=== PATIENT | female | born 1995 | race Hispanic/Latino ===

== ENCOUNTER 2019-04-16 22:37 | Emergency (ER) | payer OTHER ==
--- OUTSIDE RECORDS SUMMARY | 2019-04-16 22:40 | XMS REPORT | Continuity of Care Document ---
:1995 Author Organization [facility] Address [address] [place] [address] Phone Unavailable Care Team Providers Name Role Phone PHYSICIAN, NO Primary Care Physician Unavailable Insurance Providers Guarantor IsaelGabby M Address [address] [place] [address] Email NO EMAIL Payer Self Pay Insurance Subscriber's Name Gabby Kirkland Relationship Self / Same As Patient Group Number NA Group Name NA Advance Directives Directive Response Recorded Date/Time Advance Directives No 09/25/15 10:51am Advance Directive on File No 12/10/17 4:47pm Directive to Physicians/Living Will No 09/25/15 10:51am Health Care Proxy No 09/25/15 10:51am Name of Surrogate/Decision Maker NA 12/10/17 4:59pm Organ Donor Yes 09/25/15 10:51am Medical Power of Pastry Mixer No 09/25/15 10:51am Patient/Family Given Education Material R/T Y - KR....12/10/17 12/10/17 4: 59pm Directives? Chief Complaint and Reason for Visit Chief Complaint Abdominal/GI/Nausea/Vomiting Reason for Visit Nonspecific abdominal pain Problems Medical Problem Onset Date Status Abdominal pain Unknown Acute Abscess of skin of neck Unknown Acute Dehydration Unknown Acute Flank pain Unknown Acute Heat exhaustion Unknown Acute Hyperemesis gravidarum with dehydration Unknown Acute Hypokalemia Unknown Acute delivery Unknown Acute UTI (lower urinary tract infection) Unknown Acute UTI (lower urinary tract infection) Unknown Acute Past Problems Medical Problem Onset Date Status Marijuana abuse Unknown Acute Nonspecific abdominal pain Unknown Acute Tobacco use Unknown Acute Viral bronchitis Unknown Acute Medications Current Home MedicationsNo known current home medications. Past Home Medications Medication Directions Ordered Status Cefdinir (Omnicef) 300 Mg Cap, 300 Every 12 Hours Discontinued Mg Oral Hydrocodone-Acetaminophen 5/325MG Every 4-6H As Needed/ Pain as 03/06/16 Discontinued * (Walling 5/325MG *) 1 Tab Tab, 1-2 needed for Pain Tabs Oral Ibuprofen 800 Mg Tab, 800 Mg Oral Every 6 Hours As Needed for 03/06/16 Discontinued Pain Phenazopyridine Hcl (Pyridium 200 Three Times Daily As Needed Discontinued Mg*) 200 Mg Tab, 200 Mg Oral Vit W/ Fe Polysacch C Once Daily Discontinued (Vitafol Ultra) 1 Cap Cap, 1 Cap Oral Social History Social History Problem Response Recorded Date/Time Onset Date Status Hx Alcohol Use No 07/16/2011 10:50am Not Applicable Not Applicable Hx Physical Abuse No 12/10/2017 4:47pm Not Applicable Not Applicable Smoking Status Start Date Stop Date Current every day smoker Hospital Discharge Instructions No hospital discharge instruction information available. Plan of Care Discharge Date 12/10/17 7:00pm Instructions/Education Provided Abdominal Pain, Adult, Onss-ww-Eehe Forms Provided Portal Welcome Letter Prescriptions See Medication Section Referrals NO PHYSICIAN Additional Instructions/Education Home Tylenol or Advil for pain REturn to ER as needed RX Zofran Follow-up with primary MD Functional Status No functional status information available. Allergies, Adverse Reactions, Alerts Allergen Type Severity Reaction Status Last Updated No Known Allergies Allergy Unknown Active 10/12/13 Immunizations No immunization information available. Vital Signs Acute Vital Signs Vital Response Date/Time Blood Pressure 120/65 mm Hg 12/10/2017 7:05pm Pulse Pulse Rate (adult) 67 beats per minute (60 - 100) 12/10/2017 7:05pm Respiratory Rate 17 breaths per minute (10 - 24) 12/10/2017 7:05pm Temperature Source Oral 12/10/2017 6:14pm Height 5 ft 4 in 12/10/2017 4:47pm Weight 160 lb 12/10/2017 4:47pm Body Mass Index 27.5 kg/m^2 12/10/2017 4:47pm Results Laboratory Results Test Name Result Units Flags Reference Collection Result Comments Date/Time Date/Time White Blood Count 9.6 K/ul 4.0-11.5 12/10/2017 12/10/2017 5:32pm 5:42pm Red Blood Count 4.80 M/ul 3.80-5.20 12/10/2017 12/10/2017 5:32pm 5:42pm Hemoglobin 13.4 g/dl 10.5-15.7 12/10/2017 12/10/2017 5:32pm 5:42pm Hematocrit 39.4 % 34.0-50.0 12/10/2017 12/10/2017 5:32pm 5:42pm Mean Corpuscular 82.0 fl 78-98 12/10/2017 12/10/2017 Volume 5:32pm 5:42pm Mean Corpuscular 27.8 pg 26.2-33.4 12/10/2017 12/10/2017 Hemoglobin 5:32pm 5:42pm Mean Corpuscular 34.0 g/dl 31.5-36.2 12/10/2017 12/10/2017 Hemoglobin Concent 5:32pm 5:42pm Red Cell 13.4 % 11.5-15.5 12/10/2017 12/10/2017 Distribution Width 5:32pm 5:42pm Platelet Count 250 K/ul 137-338 12/10/2017 12/10/2017 5:32pm 5:42pm Mean Platelet 9.4 fl 8.4-11.8 12/10/2017 12/10/2017 Volume 5:32pm 5:42pm Neutrophils (%) 63.8 % 44.4-80.1 12/10/2017 12/10/2017 (Auto) 5:32pm 5:42pm Lymphocytes (%) 27.5 % 10.0-50.0 12/10/2017 12/10/2017 (Auto) 5:32pm 5:42pm Monocytes (%) 5.6 % 3.6-12.04 12/10/2017 12/10/2017 (Auto) 5:32pm 5:42pm Eosinophils (%) 2.3 % 0.0-5.41 12/10/2017 12/10/2017 (Auto) 5:32pm 5:42pm Basophils (%) 0.9 % H 0.0-0.79 12/10/2017 12/10/2017 (Auto) 5:32pm 5:42pm Urine Color YELLOW 12/10/2017 12/10/2017 5:25pm 5:56pm Urine Appearance CLEAR CLEAR 12/10/2017 12/10/2017 5:25pm 5:56pm Urine Glucose NEGATIVE NEGATIVE 12/10/2017 12/10/2017 5:25pm 5:56pm Urine Bilirubin NEGATIVE NEGATIVE 12/10/2017 12/10/2017 5:25pm 5:56pm Urine Ketones TRACE NEGATIVE 12/10/2017 12/10/2017 5:25pm 5:56pm Urine Specific 1.030 1.003-1.03 12/10/2017 12/10/2017 Sayre 0 5:25pm 5:56pm Urine Blood NEGATIVE NEGATIVE 12/10/2017 12/10/2017 5:25pm 5:56pm Urine pH 6.000 5-9 12/10/2017 12/10/2017 5:25pm 5:56pm Urine Protein 1+ (30 H NEGATIVE 12/10/2017 12/10/2017 mg/dL) 5:25pm 5:56pm Urine Urobilinogen 2.0-3.0 mg/dL H 0.2-1.0 12/10/2017 12/10/2017 5:25pm 5:56pm Urine Nitrate NEGATIVE NEGATIVE 12/10/2017 12/10/2017 5:25pm 5:56pm Urine Leukocyte NEGATIVE NEGATIVE 12/10/2017 12/10/2017 Esterase 5:25pm 5:56pm Urine RBC 1-5 /hpf 0-5 12/10/2017 12/10/2017 5:25pm 6:02pm Urine WBC 1-5 /hpf 0-5 12/10/2017 12/10/2017 5:25pm 6:02pm Urine Epithelial 1-5 /hpf 0-5 12/10/2017 12/10/2017 Cells 5:25pm 6:02pm Urine Bacteria SMALL(1+) /hpf None 12/10/2017 12/10/2017 Detect 5:25pm 6:02pm Urine Casts 6-10 /lpf H None 12/10/2017 12/10/2017 Detect 5:25pm 6:02pm Urine Culture NO 12/10/2017 12/10/2017 Reflexed 5:25pm 5:56pm Urine Mucus 2+ /lpf None 12/10/2017 12/10/2017 Detect 5:25pm 6:02pm Urine Pathogenic None seen /hpf None 12/10/2017 12/10/2017 Casts Detect 5:25pm 6:02pm Random Glucose 97 mg/dL 74-106 12/10/2017 12/10/2017 5:32pm 5:53pm Blood Urea 10 mg/dL 6-20 12/10/2017 12/10/2017 Nitrogen 5:32pm 5:53pm Serum Osmolality 278 L 280-300 12/10/2017 12/10/2017 5:32pm 5:53pm Creatinine 0.6 mg/dL 0.50-0.90 12/10/2017 12/10/2017 5:32pm 5:53pm Glomerular > 60.00 12/10/2017 12/10/2017 GFR RESULTS ARE REPORTED IN mL/min/1.73m2. Filtration Rate 5:32pm 5:53pm Calc Normal GFR: >60mL/min Moderately decreased GFR: 30-59 mL/min Severely decreased GFR: 15-29 mL/min Kidney Failure (or Dialysis): <15 mL/min The calculated eGFR is not valid for patients younger than 18 years or older than 75 years. BUN/Creatinine 16.7 12-12/10/2017 12/10/2017 Ratio 5:32pm 5:53pm Sodium Level 140 mmol/L 135-145 12/10/2017 12/10/2017 5:32pm 5:53pm Potassium Level 3.5 mmol/L 3.5-5.2 12/10/2017 12/10/2017 5:32pm 5:53pm Chloride Level 100 mmol/L 98-108 12/10/2017 12/10/2017 5:32pm 5:53pm Carbon Dioxide 25 mmol/L 21-32 12/10/2017 12/10/2017 Level 5:32pm 5:53pm Anion Gap 18.5 mEq/L 12-12/10/2017 12/10/2017 5:32pm 5:53pm Calcium Level 9.4 mg/dL 8.6-10.0 12/10/2017 12/10/2017 5:32pm 5:53pm Total Protein 7.6 g/dL 6.6-8.7 12/10/2017 12/10/2017 5:32pm 5:53pm Albumin 4.3 g/dL 3.5-5.2 12/10/2017 12/10/2017 5:32pm 5:53pm Globulin 3.3 gm/dL 12/10/2017 12/10/2017 5:32pm 5:53pm Albumin/Globulin 1.3 >1.0 12/10/2017 12/10/2017 Ratio 5:32pm 5:53pm Total Bilirubin 1.0 mg/dL 0.0-1.2 12/10/2017 12/10/2017 5:32pm 5:53pm Aspartate Amino 14 U/L L 15-32 12/10/2017 12/10/2017 Transf (AST/SGOT) 5:32pm 5:53pm Alanine 12 U/L 0-33 12/10/2017 12/10/2017 Aminotransferase 5:32pm 5:53pm (ALT/SGPT) Lipase 27 U/L 13-60 12/10/2017 12/10/2017 5:32pm 5:53pm Total Alkaline 97 U/L 35-105 12/10/2017 12/10/2017 Phosphatase 5:32pm 5:53pm Urine HCG, NEGATIVE NEG 12/10/2017 12/10/2017 Qualitative 5:25pm 5:52pm If a negative result is obtained but is suspected, a new specimen should be collected after 48-72 hours and tested. If waiting 48 hrs is not medically advisable, the test result should be confirmed with at quantitative hCG assay. Procedures Procedure Status Date Provider(s) Computed tomography of abdomen and pelvis with Completed 12/10/17 BERKLEY MEZA MD contrast Encounters Encounter Location Arrival/Admit Date Discharge/Depart Date Attending Provider Departed [place] 12/10/17 4:39pm 12/10/17 7:00pm BERKLEY MEZA Emergency Room [facility] MD [facility] Recent Diagnosis
--- OUTSIDE RECORDS SUMMARY | 2019-04-16 22:40 | XMS REPORT | Continuity of Care Document ---
:1995 Author Organization [facility] Address [address] [place] [address] Allergies, Adverse Reactions, Alerts Allergen Type Severity Reaction Last Updated Verified Status No Known Allergies Allergy Unknown October 12, 2013 No Active Medications Medication Status Dose Units Route Sig Qty Days Start End Instructions Date Date Tramadol/Apap Discontinu 1 ORAL Every 4 20 5 November * ed Hours , , As 2018 2018 Needed 11:00am for Pain Cefdinir Discontinu 300 ORAL Every September ed 12 11, Hours 2014 Hydrocodone-Ac Discontinu 1-2 ORAL Every February etaminophen ed 4-6H As , 5/325MG * Needed/ 2016 2017 Pain as 10:20am needed for Pain Ibuprofen Discontinu 800 ORAL Every 6 February ed Hours , , As 2016 2017 Needed 10:20am for Pain Phenazopyridin Discontinu 200 ORAL Three September e Hcl ed Times , Daily 2014 As Needed Vit Discontinu 1 ORAL Once 13 July W/ Fe ed Daily , Polysacch C 2017 Problems Active Problems Medical Problem Onset Date Status Abdominal pain Active Abscess of skin of neck Active Dehydration Active Flank pain Active Heat exhaustion Active Hyperemesis gravidarum with dehydration Active Hypokalemia Active delivery Active UTI (lower urinary tract infection) Active UTI (lower urinary tract infection) Active Inactive/Resolved Problems Medical Problem Onset Date Status Fracture of phalanx of toe of left foot Resolved Marijuana abuse Resolved Nonspecific abdominal pain Resolved Tobacco use Resolved Viral bronchitis Resolved Procedures Procedure Date Performed Status X-ray of left foot, three views December 04, 2018 completed Relevant Diagnostic Tests and/or Laboratory Data No known relevant diagnostic tests and/or laboratory data. Health Concerns No known health concerns documented Advance Directives Advance Directive Response Recorded Date/Time Advance Directives No September 25, 2015 10:51am Advance Directive on File No December 04, 2018 8:45am Directive to Physicians/Living Will No September 25, 2015 10:51am Health Care Proxy No September 25, 2015 10:51am Organ Donor Yes September 25, 2015 10:51am Medical Power of Tree Expert No September 25, 2015 10:51am Chief Complaint and Reason for Visit Chief Complaint Extremity Pain/Injury Reason for Visit [id number] Encounters Encounter Location(s) Arrival/Admit Date Discharge/Depart Date Provider(s) Departed [place] December 04, 2018 December 04, 2018 AVRIL ZUNIGA Emergency Room [facility] [place] 8:37am 11:20am MD Ctr Assessments No Assessments Information Available Functional Status No Functional Status information available Goals No Goals Information Available Immunizations No Immunization Information Available Mental Status No Mental Status Information Available Medical Equipment No Medical Equipment Information available Insurance Providers Guarantor Gabby Kirkland Address [address] [place] [address] [facility] [id number] Contact Info. Home Phone: Payer Policy Id Coverage Id Subscriber's Subscriber Id Effective Expiration Name Date Date Self Pay Haile Kirkland Plan of Treatment RENNY TAPE TOES. USE WALKING BOOT/SHOE UNTIL FOLLOW UP WITH ORTHOPEDIC. CRUTCH TRAINING HAS BEEN GIVEN BY NURSE. TAKE ALL MEDICATIONS PRESCRIBED NON WEIGHT BEARING TO LEFT FOOT UNTIL FOLLOW UP WITH ORTHOPEDIC IN 2-3 DAYS RETURN TO THE ER IF YOUR SYMPTOMS WORSEN Future Tests Future scheduled test information is unavailable Pending Tests Pending diagnostic test information is unavailable Future Visits Future appointment information is unavailable Referrals to Other Providers Reason for Referral Start Provider Provider Contact Provider Address Referral Date Information PHYSICIAN, NO Future Procedures Future procedure information is unavailable Future Medications Future medication information is unavailable Patient Instructions Toe Fracture, [id number] Social History Smoking Status Status Date of Observation Smokes tobacco daily (finding) December 04, 2018 8:45am Observation Status Observation Response Date of Response Hx Alcohol Use No July 16, 2011 10:50am Hx Physical Abuse No December 04, 2018 8:45am Assigned Sex Female Vital Signs Vital Reading Result Collection Date/Time
--- OUTSIDE RECORDS SUMMARY | 2019-04-16 22:40 | XMS REPORT | Continuity of Care Document ---
:1995 Author Organization [facility] Address [address] [place] [address] Allergies, Adverse Reactions, Alerts Allergen Type Severity Reaction Last Updated Verified Status No Known Allergies Allergy Unknown October 12, 2013 No Active Medications Medication Status Dose Units Route Sig Qty Days Start End Instructions Date Date Azithromycin Discontinu 1 ORAL As 1 January TAKE 2 ed Directe , r 16, TABLETS ON d for 2018 2018 DAY 1, THEN 1 Infecti 10:33am TABLET ON on DAYS 2-5 Dextromethorph Discontinu 1 ORAL Twice 20 January an-Guaifenesin ed Daily , r , * As 2018 2018 Needed 10:33am as needed for Cough And Congest ion Tramadol/Apap Discontinu 1 ORAL Every 4 November * ed Hours , , As 2018 2018 Needed 11:00am for Pain Cefdinir Discontinu 300 ORAL Every September ed 12 , Hours 2014 Hydrocodone-Ac Discontinu 1-2 ORAL Every February etaminophen ed 4-6H As , , 5/325MG * Needed/ 2016 2017 Pain as 10:20am needed for Pain Ibuprofen Discontinu 800 ORAL Every 6 February ed Hours , , As 2016 2017 Needed 10:20am for Pain Phenazopyridin Discontinu 200 ORAL Three [place] H[facility] ed Times , Daily 2014 [...] Marijuana abuse Resolved Nonspecific abdominal pain Resolved Pharyngitis Resolved Sinusitis, acute Resolved Tobacco use Resolved URI (upper respiratory infection) Resolved Viral bronchitis Resolved Procedures Procedure Date Performed Status EMERGENCY DEPT VISIT December 04, 2018 completed X-RAY EXAM OF FOOT December 04, 2018 completed X-ray of left foot, three views December 04, 2018 completed Relevant Diagnostic Tests and/or Laboratory Data Diagnostic Imaging Reports Report Dictated Date/Time Dictated By Status December 04, 2018 9:09am QUINCY WEBER MD completed Patient: GABBY KIRKLAND MR#: [id number] : [address] AVRIL ZUNIGA MD Pt Status : REG ER Pt Location: [facility] Date/Time: 12/04/18 0844 Primary Care Physician: . BENNIE PHYSICIAN Technologist(s): JESUS MELENDEZ Procedure(s): [id number] RAD/FOOT 3 VIEWS LEFT Signed Procedure: FOOT 3 VIEWS LEFT Exam Date: 12/04/2018 Ordering Provider: MD ZUNIGA Clinical Indication: Left foot pain Comparison: None Findings/impression: Comminuted fracture of the proximal phalanx of the left fourth toe. No other fracture or dislocation in the left foot. No radiopaque foreign body. No subcutaneous gas evident. Signed by: Quincy Weber MD on 12/04/2018 9:09 AM Transcribed By: [employer] SIGNED <electronically signed by QUINCY WEBER MD> 8 1 QUINCY WEBER MD Health Concerns No known health concerns documented Advance Directives Advance Directive Response Recorded Date/Time Advance Directives No September 25, 2015 10:51am Advance Directive on File No January 24, 2019 8:53am Directive to Physicians/Living Will No September 25, 2015 10:51am Health Care Proxy No September 25, 2015 10:51am Organ Donor Yes September 25, 2015 10:51am Medical Power of Manager Of Security No September 25, 2015 10:51am Chief Complaint and Reason for Visit Chief Complaint Influenza Reason for Visit [id number] Encounters Encounter Location(s) Arrival/Admit Date Discharge/Depart Date Provider(s) Departed [place] January 24, January 24, 2019 JEROME LIM MD Emergency Room [place] [address] 8:46am 11:10am Ctr Departed [place] December 04, 2018 December 04, 2018 AVRIL ZUNGIA Emergency Room [facility] 8:37am 11:20am Ctr Assessments No Assessments Information Available Functional Status No Functional Status information available Goals No Goals Information Available Immunizations No Immunization Information Available Mental Status No Mental Status Information Available Medical Equipment No Medical Equipment Information available Insurance Providers Guarantor Gabby Kirkland Address [address] [place] [id number] Contact Info. Home Phone: Payer Policy Id Coverage Id Subscriber's Subscriber Id Effective Expiration Name Date Date Medicaid [id number] Gabby Kirkland [id number] Plan of Treatment WORK EXCUSE FOR TWO DAYS. ZITHROMAX & MUCINEX-DM Rx TAKE TYLENOL & IBUPROFEN NEEDED FOR PAIN/FEVER. SEE PCP IF NOT BETTER WITHIN 5 DAYS Future Tests Future scheduled test information is unavailable Pending Tests Pending diagnostic test information is unavailable Future Visits Future appointment information is unavailable Referrals to Other Providers Reason for Referral Start Provider Provider Contact Provider Address Referral Date Information PHYSICIAN, NO Future Procedures Future procedure information is unavailable Future Medications Future medication information is unavailable Patient Instructions Viral Respiratory Infection, Kugj-Rn-Tdci Social History Smoking Status Status Date of Observation Smokes tobacco daily (finding) January 24, 2019 8:53am Observation Status Observation Response Date of Response Hx Alcohol Use No July 16, 2011 10:50am Hx Physical Abuse No January 24, 2019 8:53am Assigned Sex Female Vital Signs Vital Reading Result Collection Date/Time
--- OUTSIDE RECORDS SUMMARY | 2019-04-16 22:41 | XMS REPORT | Continuity of Care Document ---
:1995 Author Organization [facility] Address [address] [place] [address] Allergies, Adverse Reactions, Alerts Allergen Type Severity Reaction Last Updated Verified Status No Known Allergies Allergy Unknown October 12, 2013 No Active Medications Medication Status Dose Units Route Sig Qty Days Start End Instructions Date Date Azithromycin Discontinu 1 ORAL As 1 18 January Decembe TAKE 2 ed Directe , r , TABLETS ON d for 2018 2018 DAY 1, THEN 1 Infecti 10:33am TABLET ON on DAYS 2-5 Dextromethorph Discontinu 1 ORAL Twice 20 23 January [facility] an-Guaifenesin ed Daily , r , * As 2018 2018 Needed 10:33am as needed for Cough And Congest ion Ibuprofen Discontinu 1 ORAL Every 6 20 February ed Hours , , As 2019 2019 Needed 12:08pm as needed for Pain Nitrofurantoin Discontinu 1 ORAL Every 14 February FOR URINARY * ed 12 , , TRACT Hours 2019 2019 INFECTION for 12:08pm Infecti on Tramadol/Apap Discontinu 1 ORAL Every 4 20 [...] for Pain Phenazopyridin Discontinu 200 ORAL Three [place] [facility] Times , Daily 2014 As Needed Vit Discontinu 1 ORAL Once 13 July W/ Fe ed Daily , Polysacch C 2018 Problems Active Problems Medical Problem Onset Date Status Abdominal pain Active Abscess of skin of neck Active Dehydration Active Flank pain Active Heat exhaustion Active Hyperemesis gravidarum with dehydration Active Hypokalemia Active Near syncope Active Active delivery Active UTI (lower urinary tract infection) Active UTI (lower urinary tract infection) Active Inactive/Resolved Problems Medical Problem Onset Date Status Back pain Resolved Fracture of phalanx of toe of left foot Resolved Marijuana abuse Resolved Nonspecific abdominal pain Resolved Pharyngitis Resolved Sinusitis, acute Resolved Tobacco use Resolved URI (upper respiratory infection) Resolved Viral bronchitis Resolved Procedures Procedure Date Performed Status EMERGENCY DEPT VISIT March 06, 2019 completed URINALYSIS AUTO W/SCOPE March 06, 2019 completed ROUTINE VENIPUNCTURE March 06, 2019 completed URINE BACTERIA CULTURE March 06, 2019 completed URINE TEST March 06, 2019 completed CHYLMD TRACH DNA AMP PROBE March 06, 2019 completed N.GONORRHOEAE DNA AMP PROB March 06, 2019 completed THER/PROPH/DIAG INJ SC/IM March 06, 2019 completed Transvaginal obstetrical ultrasound April 04, 2019 completed Relevant Diagnostic Tests and/or Laboratory Data Laboratory Results Test Date/Time Result Interpretation Reference Result Comment Performing Range Site White Blood February 10.2 4.0-11.5 [facility], 104 Count 2019 7:29pm [facility] [address] Red Blood Count March 4.70 3.80-5.20 [facility], 104 2019 7:29pm [facility] [address] Hemoglobin February 13.3 10.5-15.7 [facility], 104 2019 7:29pm [place] [address] Hematocrit February 39.0 34.0-50.0 [facility], 104 2019 7:29pm [facility] [address] Mean Corpuscular February 83.0 86-100 [facility], 104 Volume 2019 7:29pm [place] [address] Mean Corpuscular February 28.3 26.2-33.4 [facility], 104 Hemoglobin 2019 7:29pm [place] [address] Mean Corpuscular February 34.1 30-34 [facility], 104 Hemoglobin 2019 Concent 7:29pm [facility] [address] Red Cell February 13.3 12.0-15.5 [facility], 104 Distribution 2019 Width 7:29pm [facility] [address] Platelet Count March 248 165-450 [facility], 104 2019 7:29pm [place] [address] Mean Platelet February 10.6 9.4-12.6 [facility], [address] [facility] [address] Volume 2019 7:29pm [place] [address] Neutrophils (%) March 60.3 44.4-80.1 [facility], [address] [facility] (Auto) 2019 7:29pm [place] [address] Immature February 0.2 0.0-0.4 [facility], [address] Granulocyte % 2019 (Auto) 7:29pm [place] [address] Lymphocytes (%) March 30.9 10.0-50.0 [facility], [address] [facility] (Auto) 2019 7:29pm [place] [address] Monocytes (%) March 7.9 3.6-12.0 [facility], [address] [facility] (Auto) 2019 7:29pm [place] [address] Eosinophils (%) March 0.4 0.0-5.4 [facility], [address] [facility] (Auto) 2019 7:29pm [place] [address] Basophils (%) February 0.3 0.1-1.2 [facility], [address] [facility] (Auto) 2019 7:29pm [place] [address] Neutrophils # February 6.14 1.56-6.13 [facility], [address] [facility] (Auto) 2019 7:29pm [place] [address] Absolute February 0.0 0.0-0.03 [facility], [address] [facility] [address] Immature 2019 Granulocyte 7:29pm [place] [address] (auto Lymphocytes # February 3.2 1.18-3.74 [facility], [address] [facility] (Auto) 2019 7:29pm [place] [address] Monocytes # February 0.80 0.24-0.86 [facility], [address] [facility] (Auto) 2019 7:29pm [place] [address] Eosinophils # February 0.04 0.04-0.36 [facility], [address] [facility] (Auto) 2019 7:29pm [place] [address] Basophils # February 0.03 0.01-0.08 [facility], [address] [facility] (Auto) 2019 7:29pm [place] [address] Nucleated Red February 0 0-0.2 [facility], [address] Blood Cells % 2019 7:29pm [place] [address] Nucleated Red March 0 0 [facility], [facility] Blood Cells # 2019 7:29pm [place] [address] Urine Color February LT. [facility], 104 2019 YELLOW 6:55pm [place] [address] Urine Appearance March CLEAR CLEAR [facility], 104 2019 6:55pm [place] [address] Urine Glucose March NEGATIVE NEGATIVE [facility], [address] [facility] (UA) 2019 6:55pm [place] [address] Urine Bilirubin March NEGATIVE NEGATIVE [facility], 104 2019 6:55pm [place] [address] Urine Ketones March NEGATIVE NEGATIVE [facility], [address] [facility] 2019 6:55pm [place] [address] Urine Specific February 1.010 1.003-1.03 [facility], [address] [facility] [place] 2019 0 6:55pm [place] [address] Urine Blood March NEGATIVE NEGATIVE [facility], [address] [facility] 2019 6:55pm [place] [address] Urine pH March 7.000 5-9 [facility], 104 2019 6:55pm [place] [address] Urine Protein March NEGATIVE NEGATIVE [facility], 104 2019 6:55pm [place] [address] Urine February 0.2 0.2-1.0 [facility], [address] [facility] Urobilinogen 2019 6:55pm [place] [address] Urine Nitrate March NEGATIVE NEGATIVE [facility], 104 2019 6:55pm [place] [address] Urine Leukocyte March NEGATIVE NEGATIVE [facility], [address] [facility] Esterase 2019 6:55pm [place] [address] Urine RBC March NONE SEEN 0-5 [facility], 104 2019 6:55pm [place] [address] Urine WBC March 0-2 0-5 [facility], 104 2019 6:55pm [place] [address] Urine Epithelial March 0-5 0-5 [facility], [address] [facility] Cells 2019 6:55pm [place] [address] Urine Bacteria March None None [facility], [address] [facility] 2019 Detected Detect 6:55pm [place] [address] Urine Casts March NONE SEEN None [facility], 104 2019 Detect 6:55pm [facility] [address] Urine Culture March NO [facility], 104 Reflexed 2019 6:55pm [facility] [address] Random Glucose March 107 74-106 [facility], 104 2019 7:29pm [facility] [address] Blood Urea March 5 6-20 [facility], 104 Nitrogen 2019 7:29pm [facility] [address] Serum Osmolality March 270 280-300 [facility], 104 2019 7:29pm [facility] [address] Creatinine March 0.5 0.50-0.90 [facility], 104 2019 7:29pm [facility] [address] Glomerular February > 60.00 GFR RESULTS [facility], 104 Filtration Rate 2019 ARE REPORTED Calc 7:29pm IN [facility] [address] mL/min/1.73m2. Normal GFR: >60mL/minModer ately decreased GFR: 30-59 mL/minSeverely decreased GFR: 15-29 mL/minKidney Failure (or Dialysis): <15 mL/minThe calculated eGFR is not valid for patients younger than 18 years or older than 75 years. BUN/Creatinine March 10.0 12-20 [facility], 104 Ratio 2019 7:29pm [facility] [address] Sodium Level March 136 135-145 [facility], 104 2019 7:29pm [facility] [address] Potassium Level March 3.0 3.5-5.2 [facility], 104 2019 7:29pm [facility] [address] Chloride Level March 101 98-108 [facility], 104 2019 7:29pm [facility] [address] Carbon Dioxide March 19 21-32 [facility], 104 Level 2019 7:29pm [facility] [address] Anion Gap March 19.0 12-20 [facility], 104 2019 7:29pm [facility] [address] Calcium Level March 9.6 8.6-10.0 [facility], 104 2019 7:29pm [facility] [address] Total Protein March 8.0 6.6-8.7 [facility], 104 2019 7:29pm [place] [id number] Albumin March 4.4 3.5-5.2 [facility], [address] [place] [address] 2019 7:29pm [place] [id number] Globulin March 3.6 [facility], [address] [place] [address] 2019 7:29pm [place] [address] Albumin/Globulin March 1.2 >1.0 [facility], [address] [place] [address] Ratio 2019 7:29pm [place] [address] Total Bilirubin March 0.5 0.0-1.2 [facility], [address] [place] [address] 2019 7:29pm [place] [id number] Aspartate Amino March 13 15-32 [facility], [address] [facility] Transf 2019 (AST/SGOT) 7:29pm [place] [address] Alanine March 10 0-33 [facility], [address] [place] [address] Aminotransferase 2019 (ALT/SGPT) 7:29pm [place] [address] Total Alkaline March 79 35-105 [facility], [address] [place] [address] Phosphatase 2019 7:29pm [place] [address] Beta HCG, March 69410.0 0-5 REFERENCE [facility], [facility] Quantitative 2019 RANGESNORMAL: 7:29pm NON- [place] [address] PREMENOPAUSAL POST-MENOPAUSA L <7Weeks of Gestation Expected Result mIU/mL3 5.8 - 71.24 9.5 - 7505 217 - 7,1386 158 - 31,7957 3697 - 163,5638 32,065 - 149,5719 63,803 - 151,10768 46,509 - 186,95770 27,832 - 210,97913 13,950 - 62,54130 12,039 - 70,34942 9,040 - 56,83936 8,175 - 55,04484 8,099 - 58,176 Urine HCGFebruary NEGATIVE NEG If a negative [address] Qualitative 2019 result is 11:21am obtained but [place] [address] is suspected, a new specimen should be collected after 48-72 hours and tested. If waiting 48 hrs is not medically advisable, the test result should be confirmed with at quantitative hCG assay. Serum March POSITIVE NEG [address] Test, 2019 Qualitative 7:29pm [place] [address] Microbiology Results Procedure Source Result Collection Result Result Performing Date/Time Date/Time Comment Site Urine URINE,RADHA STAPHYLOCOCCUS March 06February [facility], [address] Culture AN CATCH SAPROPHYTICUS 2019 11:21am 2019 10:22am [facility] [address] Health Concerns No known health concerns documented Advance Directives Advance Directive Response Recorded Date/Time Advance Directives No September 25, 2015 10:51am Advance Directive on File No April 04, 2019 6:33pm Directive to Physicians/Living Will No September 25, 2015 10:51am Health Care Proxy No September 25, 2015 10:51am Organ Donor Yes September 25, 2015 10:51am Medical Power of Waste Collection Driver No September 25, 2015 10:51am Chief Complaint and Reason for Visit Chief Complaint Neuro Symptoms/ Deficits Reason for Visit [id number] Encounters Encounter Location(s) Arrival/Admit Date Discharge/Depart Date Provider(s) Registered [place] April 04 YAHAIRA Emergency Room [facility] 2019 6:09pm [facility] Departed [place] March 06, 2019 March 06, 2019 BR[facility] Emergency Room [facility] 11:03am 1:09pm [facility] [place] [facility] Assessments No Assessments Information Available Functional Status No Functional Status information available Goals No Goals Information Available Immunizations No Immunization Information Available Mental Status No Mental Status Information Available Medical Equipment No Medical Equipment Information available Insurance Providers Guarantor Gabby Kirkland Address [address] [place] [id number] Contact Info. Home Phone: Payer Policy Id Coverage Id Subscriber's Subscriber Id Effective Expiration Name Date Date Medicaid [id number] Gabby Kirkland [id number] Pastor Plan of Treatment FOLLOW UP WITH OB IN 2-3 DAYS Future Tests Future scheduled test information is unavailable Pending Tests Pending diagnostic test information is unavailable Future Visits Future appointment information is unavailable Referrals to Other Providers Reason for Referral Start Provider Provider Contact Provider Address Referral Date Information PHYSICIAN, NO Future Procedures Future procedure information is unavailable Future Medications Future medication information is unavailable Patient Instructions First Trimester of , Iiyq-qh-Csxb Syncope, Jqlp-ns-Vtwe Social History Smoking Status Status Date of Observation Smokes tobacco daily (finding) April 04, 2019 6:33pm Observation Status Observation Response Date of Response Hx Alcohol Use No July 16, 2011 10:50am Hx Physical Abuse No April 04, 2019 6:33pm Assigned Sex Female Vital Signs Vital Reading Result Collection Date/Time
--- OUTSIDE RECORDS SUMMARY | 2019-04-16 22:41 | XMS REPORT | Continuity of Care Document ---
:1995 Author Organization [facility] Address [address] [place] [address] Allergies, Adverse Reactions, Alerts Allergen Type Severity Reaction Last Updated Verified Status No Known Allergies Allergy Unknown October 12, 2013 No Active Medications Medication Status Dose Units Route Sig Qty Days Start End Instructions Date Date Azithromycin Discontinu 1 ORAL As 1 18 January Decembe TAKE 2 ed Directe , r 16, TABLETS ON d for 2018 2018 DAY 1, THEN 1 Infecti 10:33am TABLET ON on DAYS 2-5 Dextromethorph Discontinu 1 ORAL Twice 20 23 January [facility] an-Guaifenesin ed Daily , r [...] Discontinu 300 ORAL Every September ed 12 11th, Hours 2014 Hydrocodone-Ac Discontinu 1-2 ORAL Every February etaminophen ed 4-6H As , , 5/325MG * Needed/ 2016 2017 Pain as 10:20am needed for Pain Ibuprofen Discontinu 800 ORAL Every 6 February ed Hours , , As 2016 2017 Needed 10:20am for Pain Phenazopyridin Discontinu 200 ORAL Three [place] [employer] e Hcl ed Times 11, Daily 2014 As Needed Vit Discontinu 1 ORAL Once 13 July W/ Fe ed Daily , Polysacch C 2018 Problems Active Problems Medical Problem Onset Date Status Abdominal pain Active Abscess of skin of neck Active Back pain Active Dehydration Active Flank pain Active Heat [...] Procedure Date Performed Status EMERGENCY DEPT VISIT January 24, 2019 completed INFLUENZA DNA AMP PROBE January 24, 2019 completed STREP A DNA AMP PROBE January 24, 2019 completed Relevant Diagnostic Tests and/or Laboratory Data Laboratory Results Test Date/Time Result Interpretation Reference Result Performing Range Comment Site Urine Color February LT. YELLOW [facility], [address] [facility] [address] 2019 11:21[facility] [address] Urine Nhung SL CLOUDY CLEAR [facility], [address] [facility] Appearance 2019 11:21[facility] [address] Urine Glucose February NEGATIVE NEGATIVE [facility], [address] [facility] (UA) 2019 11:21[facility] [address] Urine Nhung NEGATIVE NEGATIVE [facility], [address] [facility] Bilirubin 2019 11:21[facility] [address] Urine Ketones February NEGATIVE NEGATIVE [facility], 104 2019 11:21[facility] [address] Urine Specific February 1.015 1.003-1.030 [facility], [address] [place] 2019 11:21[facility] [address] Urine Blood February TRACE-LYSE NEGATIVE [facility], 104 2019 D 11:21[facility] [address] Urine pH February 7.500 5-9 [facility], [facility] 2019 11:21[facility] [address] Urine Protein February 1+ (30 NEGATIVE [facility], 104 2019 mg/dL) 11:21[facility] [address] Urine Nhung 0.2 0.2-1.0 [facility], [address] Urobilinogen 2019 11:21[facility] [address] Urine Nitrate February POSITIVE NEGATIVE [facility], [address] [facility] 2019 11:21[facility] [address] Urine Nhung TRACE NEGATIVE [facility], [address] [facility] Leukocyte 2019 Esterase 11:21[facility] [address] Urine RBC February 0-5 0-5 [facility], [address] [facility] 2019 11:21[facility] [address] Urine WBC Nhung 20-29 0-5 [facility], [address] 2019 11:21am [facility] [address] Urine Nhung NONE SEEN 0-5 [facility], [address] [facility] Epithelial 2019 Cells 11:21am [facility] [address] Urine Bacteria February MODERATE None Detect [facility] [address] 2019 11:21am [facility] [address] Urine Culture February YES [facility], [address] Reflexed 2019 11:21am [facility] [address] Urine HCG, February NEGATIVE NEG If a negative [facility], [address] Qualitative 2019 result is 11:21am obtained but [facility] [address] is suspected, a new specimen should be collected after 48-72 hours and tested. If waiting 48 hrs is not medically advisable, the test result should be confirmed with at quantitative hCG assay. Health Concerns No known health concerns documented Advance Directives Advance Directive Response Recorded Date/Time Advance Directives No September 25, 2015 10:51am Advance Directive on File No March 06, 2019 11:08am Directive to Physicians/Living Will No September 25, 2015 10:51am Health Care Proxy No September 25, 2015 10:51am Organ Donor Yes September 25, 2015 10:51am Medical Power of Filter Cloth Maker No September 25, 2015 10:51am Chief Complaint and Reason for Visit Chief Complaint Female Urogenital Problems Reason for Visit [id number] Encounters Encounter Location(s) Arrival/Admit Date Discharge/Depart Date Provider(s) Registered [place] March 06, 2019 BR[facility] Emergency Room [facility] 11:03am [facility] [place] [facility] Departed [place] January 24January 24, 2019 JEROME LIM MD Emergency Room [facility] 2018 8:46am 11:10am Ctr Assessments No Assessments Information Available Functional Status No Functional Status information available Goals No Goals Information Available Immunizations No Immunization Information Available Mental Status No Mental Status Information Available Medical Equipment No Medical Equipment Information available Insurance Providers Guarantor Gabby Kirkland Address [address] [place] [address] [address] [facility] [id number] Contact Info. Home Phone: Payer Policy Id Coverage Id Subscriber's Subscriber Id Effective Expiration Name Date Date Medicaid [id number] Gabby Kirkland [id number] Pastor Plan of Treatment Macrobid 100 mg twice a day for 7 days And ibuprofen 400 mg every 6 hours as needed for pain #20 may also use Tylenol for pain follow up with your primary care physician in 3 days if no improvement in symptoms return for new or worsening of symptoms Future Tests Future scheduled test information is unavailable Pending Tests Test Name Date ordered Urine Culture March 06, 2019 11:21am Future Visits Future appointment information is unavailable Referrals to Other Providers Reason for Referral Start Provider Provider Contact Provider Address Referral Date Information PHYSICIAN, NO Future Procedures Future procedure information is unavailable Future Medications Future medication information is unavailable Patient Instructions Acute Back Pain, Adult Urinary Tract Infection, Adult Social History Smoking Status Status Date of Observation Smokes tobacco daily (finding) March 06, 2019 11:08am Observation Status Observation Response Date of Response Hx Alcohol Use No July 16, 2011 10:50am Hx Physical Abuse No March 06, 2019 11:08am Assigned Sex Female Vital Signs Vital Reading Result Collection Date/Time
[2019-04-16] MEDS ORDERED: NA CHLORIDE 0.9% 1,000 ML ONE (23:38)
[2019-04-16] MEDS ORDERED: METOCLOPRAMIDE 10 MG/2mL INJ ONE (23:38)
[2019-04-17 00:03] LABS: Absolute Lymphocytes (CBC) 2.6 K/uL (0.7-4.9); Basophils % 0.1 % (0-1.3); Hematocrit 36.9 % (36.0-45.0); Lymphocytes % 25.7 % (15.3-44.8); RBC Red Blood Cell Count 4.53 M/uL (3.86-4.86)
[2019-04-17 00:14] LABS: ALT/SGPT 174 U/L (12-78); AST/SGOT 94 U/L (15-37); Albumin 3.5 g/dL (3.4-5.0); Alkaline Phosphatase 115 U/L (45-117); BUN Blood Urea Nitrogen 7 mg/dL (7-18); Bicarbonate 25 mmol/L (21-32); Bilirubin Direct 0.5 mg/dL (0-0.2); Bilirubin Total 1.7 mg/dL (0.2-1.0); Glucose Level 96 mg/dL (74-106); Lipase 146 U/L (73-393); Protein, Total 7.9 g/dL (6.4-8.2); Sodium Level 137 mmol/L (136-145)
[2019-04-17 00:16] LABS: Potassium 2.6 mmol/L (3.5-5.1)
[2019-04-17] MEDS ORDERED: KCL 20 MEQ/100 mL IVPB 20 MEQ/100 ML BAG IV ONE (00:33)
[2019-04-17] MEDS ORDERED: NA CHLORIDE 0.9% 0 ML ONE (00:33)
[2019-04-17 00:35] LABS: Urine Blood NEGATIVE (NEG); Urine Glucose NEGATIVE (NEG); Urine Protein 2+ (NEG); Urine Specific Gravity 1.025 (1.005-1.030)
[2019-04-17] MEDS ORDERED: NA CHLORIDE 0.9% 1,000 ML ONE (00:35)
[2019-04-17] MEDS ORDERED: CEFTRIAXONE/SWI 1gm 1 GM/10 ML SYR ONE (01:15)
[2019-04-17] MEDS ORDERED: POTASSIUM 25 MEQ EFFERV TAB ONE (01:15)
[2019-04-17 01:54] LABS: Urine Mucus 3+ /HPF (NONE SEEN)
[2019-04-17 01:55] LABS: Urine Bacteria 20-50 /HPF (<20); Urine Culture Reflex Order REFLEXED; Urine RBC <5 /HPF (NONE SEEN)
--- NOTE | 2019-04-17 01:55 | EDPHYS ---
Physician Documentation [facility] Name: Gabby Kirkland Age: 23 yrs Sex: Female : 1995 Arrival Date: 04/16/2019 Time: 22:40 Bed 14 Private MD: ED Physician Felipe Fernandez HPI: 04/15 23:10 This 23 yrs old Female presents to ER via Ambulatory with complaints of jmm Dizziness, Vomiting, 7 WEEKS . 23:10 The patient presents to the emergency department with vomiting. Onset: The jmm symptoms/episode began/occurred gradually, 2 week(s) ago. Possible causes: . The symptoms are aggravated by food , The symptoms are alleviated by nothing. Associated signs and symptoms: Pertinent negatives: dysuria, fever. This is a 23 year old female currently 7 weeks that presents to the ED with complaints of vomiting beginning approx 2 week ago. Worsening 1 week ago. Denies diarrhea. Denies vaginal bleeding. . VP CONSTRUCTION: 22:56 2, Full Term 1, Living 1, LMP 02/19/2019 bb Historical: - Allergies: 22:56 NKDA; bb - Home Meds: 22:56 vitamins [Active]; bb - PMHx: 22:56 None; bb - PSHx: 22:56 toe surgery; bb - Immunization history:: Adult Immunizations up to date. - Social history:: Smoking status: Patient reports the use of cigarette tobacco products, smokes one-half pack cigarettes per day. ROS: 23:10 Constitutional: Negative for fever, chills, and weight loss, Cardiovascular: Negative jmm for chest pain, palpitations, and edema, Respiratory: Negative for shortness of breath, cough, wheezing, and pleuritic chest pain. 23:10 Abdomen/GI: Positive for vomiting. 23:10 All other systems are negative. Exam: 23:10 Head/Face: atraumatic. Eyes: EOMI, no conjunctival erythema appreciated ENT: Moist jmm Mucus Membranes Neck: Trachea midline, Supple Chest/axilla: Normal chest wall appearance and motion. Cardiovascular: Regular rate and rhythm. No edema appreciated Respiratory: Normal respirations, no respiratory distress appreciated 23:10 Constitutional: The patient appears alert, awake, uncomfortable. 23:10 Abdomen/GI: Inspection: abdomen appears normal, Bowel sounds: normal, Palpation: abdomen is soft and non-tender, in all quadrants. 23:10 Back: CVA tenderness, is absent, is noted bilaterally. 23:10 Musculoskeletal/extremity: ROM: intact in all extremities. 23:10 Skin: Appearance: Color: normal in color. 23:10 Neuro: Orientation: is normal, Mentation: is normal, Memory: is normal. 23:10 Psych: Behavior/mood is pleasant, cooperative. Vital Signs: 22:52 BP 139 / 89; Pulse 60; Resp 16 S; Temp 98.3(O); Pulse Ox 98% on R/A; Weight 58.97 kg bb (M); Height 5 ft. 4 in. (162.56 cm) (R); Pain 6/10; 04/16 00:15 BP 105 / 66; Pulse 61; Resp 18; Pulse Ox 100% on R/A; wh 01:30 BP 112 / 74; Pulse 76; Resp 18; Pulse Ox 100% on R/A; wh 04/15 22:52 Body Mass Index 22.31 (58.97 kg, 162.56 cm) MDM: 04/15 23:08 Patient medically screened. [facility] 04/16 01:52 Data reviewed: vital signs, nurses notes. Counseling: I had a detailed discussion with [facility] the patient and/or guardian regarding: the historical points, exam findings, and any diagnostic results supporting the discharge/admit diagnosis, lab results, the need for outpatient follow up, to return to the emergency department if symptoms worsen or persist or if there are any questions or concerns that arise at home. ED course: Patient states feeling much better. Patient tolerates PO in the ED. Patient prescribed oral abx of asymptomatic bacteriuria. Patient has no vaginal bleeding or pelvic pain. patient is advised to follow up with ob for reevaluation. Patient is otherwise given strict return precautions. Patient understood and agrees with the plan of care. . 04/15 23:09 Order name: Basic Metabolic Panel; Complete Time: 00:24 [facility] 04/15 23:09 Order name: CBC with Diff; Complete Time: 00:24 [facility] 04/15 23:09 Order name: Creatinine for Radiology; Complete Time: 00:24 [facility] 04/15 23:09 Order name: Hepatic Function; Complete Time: 00:24 [facility] 04/15 23:09 Order name: Lipase; Complete Time: 00:24 [facility] 04/16 00:19 Order name: Urine Dipstick--Ancillary (enter results); Complete Time: 00:38 [facility] 04/16 00:29 Order name: Urine Culture [facility] 04/16 00:29 Order name: Urine Microscopic Only; Complete Time: 01:58 [facility] 04/15 23:09 Order name: IV Saline Lock; Complete Time: 23:26 [facility] 04/15 23:09 Order name: Labs collected and sent; Complete Time: 23:26 [facility] 04/15 23:09 Order name: Urine Dipstick-Ancillary (obtain specimen); Complete Time: 00:09 [facility] 04/16 00:34 Order name: PO challenge; Complete Time: 01:14 [facility] Administered Medications: 04/15 23:37 Drug: Reglan 10 mg Route: IVP; Site: right antecubital; 04/16 02:16 Follow up: Response: No adverse reaction; Nausea is decreased 04/15 23:38 Drug: NS 0.9% 1000 ml Route: IV; Rate: 1 bolus; Site: right antecubital; 04/16 02:16 Follow up: Response: No adverse reaction; IV Status: Completed infusion 00:37 Drug: Potassium Chloride 20 mEq Route: IV; Rate: calculated rate; Site: right antecubital; 02:16 Follow up: Response: No adverse reaction; IV Status: Completed infusion 00:37 Drug: NS 0.9% 1000 ml Route: IV; Rate: 1 bolus; Site: right antecubital; 02:15 Follow up: Response: No adverse reaction; IV Status: Completed infusion 01:14 Drug: Rocephin 1 grams Route: IV; Rate: calculated rate; Site: right antecubital; 02:15 Follow up: Response: No adverse reaction; IV Status: Completed infusion 01:14 Drug: K-Lyte Effervescent Tablet 50 mEq Route: PO; 02:15 Follow up: Response: No adverse reaction Disposition: 03:21 Co-signature as Attending Physician, Felipe Fernandez MD. rn Disposition: 04/17/19 01:54 Discharged to Home. Impression: Vomiting, Hypokalemia, Urinary tract infection, site not specified. - Condition is Stable. - Discharge Instructions: Hyperemesis Gravidarum, Eating Plan for Hyperemesis Gravidarum, and Urinary Tract Infection. - Prescriptions for Zofran ODT 4 mg Oral tablet,disintegrating - place 1 tablet by TRANSLINGUAL route every 4-6 hours; 20 tablet. Cephalexin 500 mg Oral Capsule - take 1 capsule by ORAL route every 12 hours for 10 days; 20 capsule. - Medication Reconciliation Form, Thank You Letter, Antibiotic Education, Prescription Opioid Use form. - Follow up: Private Physician; When: 2 - 3 days; Reason: Recheck today's complaints, Continuance of care, Re-evaluation by your physician. - Notes: You can take over the counter doxylamine (unisom) and vitamin b6 twice a day to help with nausea and vomiting. Signatures: Dispatcher [employer] EDMS Hesham Jones PA PA jmm Ballard, Brenda, RN RN Felipe Aguilera MD MD rn Habalo, Winsy wh Corrections: (The following items were deleted from the chart) 02:17 01:54 04/17/2019 01:54 Discharged to Home. Impression: Vomiting; Hypokalemia; Urinary wh tract infection, site not specified. Condition is Stable. Forms are Medication Reconciliation Form, Thank You Letter, Antibiotic Education, Prescription Opioid Use. Follow up: Private Physician; When: 2 - 3 days; Reason: Recheck today's complaints, Continuance of care, Re-evaluation by your physician. lila
--- NOTE | 2019-04-17 01:55 | ER ---
Nurse's Notes [facility] Name: Gabby Kirkland Age: 23 yrs Sex: Female : 1995 Arrival Date: 04/16/2019 Time: 22:40 Bed 14 Private MD: Diagnosis: Vomiting;Hypokalemia;Urinary tract infection, site not specified Presentation: 04/15 22:52 Chief complaint: Patient states: she is vomiting with abdominal pain x 2 weeks has bb tried to get into ob-rn gynecology but has not been able to yet pt is unable to tolerate even a sip of water she was also given Tamiflu starting on Tuesday. Coronavirus screen: The patient has NOT traveled to [place] in the past 14 days. Proceed with normal triage procedures. Ebola Screen: No symptoms or risks identified at this time. Initial Sepsis Screen: Does the patient meet any 2 criteria? No. Patient's initial sepsis screen is negative. Does the patient have a suspected source of infection? No. Patient's initial sepsis screen is negative. Risk Assessment: Do you want to hurt yourself or someone else? Patient reports no desire to harm self or others. Onset of symptoms was March 2019. 22:52 Method Of Arrival: Ambulatory bb 22:52 Acuity: IGLESIA 3 bb PERSONNEL MONITOR: 22:56 2, Full Term 1, Living 1, LMP 02/19/2019 bb Historical: - Allergies: 22:56 NKDA; bb - Home Meds: 22:56 vitamins [Active]; bb - PMHx: 22:56 None; bb - PSHx: 22:56 toe surgery; bb - Immunization history:: Adult Immunizations up to date. - Social history:: Smoking status: Patient reports the use of cigarette tobacco products, smokes one-half pack cigarettes per day. Screenin:00 Abuse screen: Denies threats or abuse. Denies injuries from another. Nutritional wh screening: No deficits noted. Tuberculosis screening: No symptoms or risk factors identified. Fall Risk None identified. Assessment: 23:00 General: Appears in no apparent distress. Behavior is calm, cooperative, appropriate wh for age. Pain: Denies pain. Neuro: Level of Consciousness is awake, alert, obeys commands. Cardiovascular: Heart tones S1 S2. Respiratory: Airway is patent Respiratory effort is even, unlabored, Respiratory pattern is regular, symmetrical, Breath sounds are clear bilaterally. GI: Abdomen is flat, non-distended, Bowel sounds present X 4 quads. Abd is soft and non tender X 4 quads. Reports nausea, vomiting. : No signs and/or symptoms were reported regarding the genitourinary system. EENT: No signs and/or symptoms were reported regarding the EENT system. Derm: Skin is intact, is healthy with good turgor, Skin is pink, warm \T\ dry. normal. Musculoskeletal: Circulation, motion, and sensation intact. 04/16 00:15 Reassessment: Patient appears in no apparent distress at this time. No changes from previously documented assessment. Patient and/or family updated on plan of care and expected duration. Pain level reassessed. Patient is alert, oriented x 3, equal unlabored respirations, skin warm/dry/pink. 01:30 Reassessment: Patient appears in no apparent distress at this time. No changes from previously documented assessment. Patient and/or family updated on plan of care and expected duration. Pain level reassessed. Patient is alert, oriented x 3, equal unlabored respirations, skin warm/dry/pink. Vital Signs: 04/15 22:52 BP 139 / 89; Pulse 60; Resp 16 S; Temp 98.3(O); Pulse Ox 98% on R/A; Weight 58.97 kg bb (M); Height 5 ft. 4 in. (162.56 cm) (R); Pain 6/10; 04/16 00:15 BP 105 / 66; Pulse 61; Resp 18; Pulse Ox 100% on R/A; 01:30 BP 112 / 74; Pulse 76; Resp 18; Pulse Ox 100% on R/A; 04/15 22:52 Body Mass Index 22.31 (58.97 kg, 162.56 cm) ED Course: 04/15 22:40 Patient arrived in ED. [id number] 22:56 Triage completed. 22:56 Arm band placed on Patient placed in an exam room, on a stretcher, on pulse oximetry. Family accompanied patient. 23:00 Patient has correct armband on for positive identification. Bed in low position. Call light in reach. Side rails up X 1. Pulse ox on. NIBP on. 23:03 Kingsley Enriquez is Primary Nurse. 23:05 Hesham Jones PA is PHCP. lila 23:05 Felipe Fernandez MD is Attending Physician. [facility] 23:30 Inserted saline lock: 20 gauge in right antecubital area, using aseptic technique. Blood collected. 04/16 00:15 Notified Nurse Practitioner and/or Physician Cable Reeler of a critical lab result(s), potassium of 2.6. 02:13 No provider procedures requiring assistance completed. IV discontinued, intact, bleeding controlled, No redness/swelling at site. Administered Medications: 04/15 23:37 Drug: Reglan 10 mg Route: IVP; Site: right antecubital; 04/16 02:16 Follow up: Response: No adverse reaction; Nausea is decreased 04/15 23:38 Drug: NS 0.9% 1000 ml Route: IV; Rate: 1 bolus; Site: right antecubital; 04/16 02:16 Follow up: Response: No adverse reaction; IV Status: Completed infusion 00:37 Drug: Potassium Chloride 20 mEq Route: IV; Rate: calculated rate; Site: right antecubital; 02:16 Follow up: Response: No adverse reaction; IV Status: Completed infusion 00:37 Drug: NS 0.9% 1000 ml Route: IV; Rate: 1 bolus; Site: right antecubital; 02:15 Follow up: Response: No adverse reaction; IV Status: Completed infusion 01:14 Drug: Rocephin 1 grams Route: IV; Rate: calculated rate; Site: right antecubital; 02:15 Follow up: Response: No adverse reaction; IV Status: Completed infusion 01:14 Drug: K-Lyte Effervescent Tablet 50 mEq Route: PO; 02:15 Follow up: Response: No adverse reaction Outcome: 01:54 Discharge ordered by . lila 02:14 Discharged to home ambulatory, with family. 02:14 Condition: stable 02:14 Discharge instructions given to patient, family, Instructed on discharge instructions, follow up and referral plans. medication usage, POC Demonstrated understanding of instructions, follow-up care, medications, POC Prescriptions given X 2. 02:17 Patient left the ED. Signatures: Hesham Jones PA PA jmm Chretien, Felicia, RN RN fc Ballard, Brenda, RN RN bb Habalo, Winsy Dixon, Lindsey [id number]
[2019-04-17 04:04] VITALS: TEMP 98.3
[2019-04-17 04:05] VITALS: O2SAT 100
[2019-04-17 04:06] VITALS: BP 112/74
== END 2019-04-17 02:17 | disposition home or self-care (01) ==
LOC: ER 22:37
DX: O23.41 Unspecified infection of urinary tract in pregnancy, first trimester (principal); O99.281 Endocrine, nutritional and metabolic diseases complicating pregnancy, first trimester; E87.6 Hypokalemia; O21.9 Vomiting of pregnancy, unspecified; O99.331 Smoking (tobacco) complicating pregnancy, first trimester; F17.210 Nicotine dependence, cigarettes, uncomplicated; Z3A.01 Less than 8 weeks gestation of pregnancy
CPT/HCPCS: 96365; 96361; 87088; 85025; 87086; 80048; 36415; 80076; 83690; 96375; 99284; J2765; J0696; J7030 ×2; 81003; 81015